=== PATIENT | male | born 1960 | race Caucasian/White ===

== ENCOUNTER 2021-11-01 20:16 | Emergency (ER) | payer OTHER ==
[~2021-11-01] VITALS: Ht 182.9 cm; Wt 68.2 kg
[2021-11-01 20:24] VITALS: BP 152/78
== END 2021-11-01 21:50 | disposition home or self-care (01) ==
LOC: ER 20:16
DX: V98.8XXA Other specified transport accidents, initial encounter; Y93.89 Activity, other specified; Y92.89 Other specified places as the place of occurrence of the external cause; Y99.8 Other external cause status
CPT/HCPCS: 99283

== ENCOUNTER 2023-05-02 06:53 | Emergency (ER) | payer OTHER ==
[~2023-05-02] VITALS: Ht 182.9 cm; Wt 64.8 kg
[2023-05-02 08:26] VITALS: PULSE 91; RESP 16; TEMP 97.7
[2023-05-02] MEDS: vancomycin/NS 1 GM ADD-VANTAGE 250 ML IV ONE (08:40)
[2023-05-02 09:19] LABS: BASOPHILS # (AUTO) 0.2 X10'3 (0-0.2); BASOPHILS % (AUTO) 1.2 % (0-1); EOSINOPHILS # (AUTO) 0.8 X10'3 (0-0.9); EOSINOPHILS % (AUTO) 6.2 % (0-6); HEMATOCRIT 44.1 % (42.0-52.0); HEMOGLOBIN 14.5 g/dl (14.0-17.9); LYMPHOCYTES # (AUTO) 2.3 X10'3 (1.1-4.8); LYMPHOCYTES % (AUTO) 17.5 % (21-51); MEAN CORPUSCULAR HEMOGLOBIN 28.7 PG (27.0-31.0); MEAN CORPUSCULAR HGB CONC 32.9 g/dL (33.0-36.5); MEAN CORPUSCULAR VOLUME 87.2 FL (78-98); MEAN PLATELET VOLUME 8.3 FL (7.4-10.4); MONOCYTES # (AUTO) 0.8 X10'3 (0-0.9); MONOCYTES % (AUTO) 6.3 % (2-12); NEUTROPHILS # (AUTO) 8.9 X10'3 (1.8-7.7); NEUTROPHILS % (AUTO) 68.8 % (42-75); PLATELET COUNT 519 X10'3 (140-440); RED BLOOD COUNT 5.05 X10'6 (4.70-6.10); RED CELL DISTRIBUTION WIDTH 13.4 % (11.5-14.5)
[2023-05-02] MEDS: cefepime 2g/NS 100ml ADVANTAGE 100 ML IV ONE (09:37)
[2023-05-02 09:52] LABS: ALBUMIN 3.8 G/DL (3.4-5.0); ANION GAP 13 (8-16); BLOOD UREA NITROGEN 18 MG/DL (7-18); BUN/CREATININE RATIO 23.4 (10.0-20.0); CHLORIDE 99 MMOL/L (99-107); CREATININE 0.77 MG/DL (0.60-1.10); GLUCOSE 331 MG/DL (70-104); POTASSIUM 4.1 MMOL/L (3.5-5.1); SODIUM 136 MMOL/L (135-145); TOTAL CARBON DIOXIDE 24.5 MMOL/L (24-32); eCRCL 89 ML/MIN; eGFR > 90 ML/MIN
[2023-05-02] MEDS ORDERED: CLIN300C3 PO (11:04)
[2023-05-02] MEDS ORDERED: SULF1TAB49 PO (11:04)
[2023-05-02] MEDS: insulin regular, human 10 units/0.1 ml syringe SQ SCH (12:52)
[2023-05-02 13:14] VITALS: BP 136/72; O2SAT 96
== END 2023-05-02 13:30 | disposition home or self-care (01) ==
LOC: ER 06:53
DX: L03.115 Cellulitis of right lower limb (principal); L03.116 Cellulitis of left lower limb; E11.65 Type 2 diabetes mellitus with hyperglycemia; Z88.0 Allergy status to penicillin
CPT/HCPCS: 36415; 80048; 82948; 85025; 96365; 96366; 96368; 96372; 99284; J0692; J1815; J3370

== ENCOUNTER 2023-08-31 17:19 | Inpatient (IN) | payer MEDICARE, OTHER ==
[~2023-08-31] VITALS: Ht 185.4 cm; Wt 62.0 kg
[2023-08-31 17:55] LABS: BASOPHILS % (AUTO) 0.2 % (0-1); EOSINOPHILS % (AUTO) 0.1 % (0-6); HEMATOCRIT 47.6 % (42.0-52.0); HEMOGLOBIN 15.6 g/dl (14.0-17.9); LYMPHOCYTES # (AUTO) 0.6 X10'3 (1.1-4.8); LYMPHOCYTES % (AUTO) 4.6 % (21-51); MEAN CORPUSCULAR HEMOGLOBIN 28.3 PG (27.0-31.0); MEAN CORPUSCULAR HGB CONC 32.8 g/dL (33.0-36.5); MEAN CORPUSCULAR VOLUME 86.1 FL (78-98); MEAN PLATELET VOLUME 8.6 FL (7.4-10.4); MONOCYTES # (AUTO) 0.9 X10'3 (0-0.9); MONOCYTES % (AUTO) 6.4 % (2-12); NEUTROPHILS # (AUTO) 12.2 X10'3 (1.8-7.7); NEUTROPHILS % (AUTO) 88.7 % (42-75); PLATELET COUNT 442 X10'3 (140-440); RED BLOOD COUNT 5.52 X10'6 (4.70-6.10); RED CELL DISTRIBUTION WIDTH 14.8 % (11.5-14.5); WHITE BLOOD COUNT 13.8 X10'3 (4.5-11.0)
[2023-08-31 18:03] LABS: ABG BASE EXCESS -8.8 mmol/L (-2.0-2.0); ABG HCO3 14.7 mmol/L (22.0-26.0); ABG OXYGEN SATURATION 88.2 % (94-97); ABG PCO2 (T) 26.9 mmHg (35.0-48.0); ABG PH (T) 7.355 (7.340-7.440); ABG PO2 (T) 52.3 mmHg (75.0-100.0); ALLEN'S TEST POSITIVE; FCOHb 0.3 % (0.0-3.9); FHHb 11.7 % (0.0-5.0); FLOW 15 L/min; FMetHb 0.3 % (0.0-1.5); FO2Hb 87.7 % (94-97); MODE NRB MASK; PATIENT TEMPERATURE 37.1; TOTAL HEMOGLOBIN 16.7 G/dl (14.0-17.9)
[2023-08-31] MEDS: normal saline 1000ML IV soln IV ONE (18:07)
[2023-08-31] MEDS: vancomycin/NS 1 GM ADD-VANTAGE 250 ML IV ONE (18:11)
[2023-08-31] MEDS: cefoxitin sod inj 2,000 MG in normal saline 100ml IV soln 100 ML IV STA (18:16)
[2023-08-31 18:23] LABS: ALANINE AMINOTRANSFERASE 74 U/L (12-78); ALBUMIN 3.3 G/DL (3.4-5.0); ALKALINE PHOSPHATASE 108 IU/L (46-116); ANION GAP 14 (8-16); ASPARTATE AMINO TRANSFERASE 34 U/L (10-37); BILIRUBIN,TOTAL 0.7 MG/DL (0.1-1.0); BLOOD UREA NITROGEN 27 MG/DL (7-18); CALCIUM 8.5 MG/DL (8.5-10.1); CHLORIDE 103 MMOL/L (99-107); CREATININE 0.75 MG/DL (0.60-1.10); GLUCOSE 316 MG/DL (70-104); MAGNESIUM 1.6 MG/DL (1.5-2.4); POTASSIUM 3.7 MMOL/L (3.5-5.1); PRO BRAIN NATRIURETIC PEPTIDE 297 PG/ML (0-125); SODIUM 137 MMOL/L (135-145); TOTAL CARBON DIOXIDE 19.8 MMOL/L (24-32); TOTAL PROTEIN 6.5 G/DL (6.4-8.2); eCRCL 88 ML/MIN; eGFR > 90 ML/MIN
[2023-08-31] MEDS ORDERED: iohexol 350MG/ML 100ml bottle IV ONE (19:00)
[2023-08-31] MEDS ORDERED: CLINDAMYCIN 600mg IN NS 50ML 50 ML IV ONE (19:25)
[2023-08-31 19:56] LABS: ETHANOL < 10 MG/DL (<10)
[2023-08-31] MEDS: naloxone 0.4 mg/ml inj IV ONE ×2 (20:19→20:31)
[2023-08-31] MEDS: clindamycin 600mg/D5W 50ml 50 ML IV ONE (20:22)
[2023-08-31 21:41] LABS: BILIRUBIN,URINE NEGATIVE (Neg); CLARITY,URINE CLEAR (Clear); COLOR,URINE YELLOW (Yellow); GLUCOSE, URINE >=1000 mg/dl (Neg); KETONES,URINE 40 mg/dl (Neg); LEUKOCYTE ESTERASE ,URINE NEGATIVE (Neg); NITRITES, URINE NEGATIVE (Neg); OCCULT BLOOD,URINE NEGATIVE (Neg); PROTEIN,URINE NEGATIVE (Neg); UROBILINOGEN,URINE 0.2 E.U/dL (0.2-1.0)
[2023-08-31 21:45] LABS: UA COLLECTION TYPE STRAIGHT CATH
[2023-08-31 21:53] LABS: BACTERIA,URINE 1+ /HPF (Neg); SQUAMOUS EPITHELIAL CELL,UR MODERATE /LPF (FEW)
[2023-08-31 21:54] LABS: MUCUS STRANDS FEW /LPF (Neg); RENAL CELLS, URINE FEW /HPF
[2023-08-31 21:58] LABS: URINE AMPHETAMINE SCREEN NEGATIVE (Neg); URINE BARBITUATE SCREEN NEGATIVE (Neg); URINE BENZODIAZEPINES SCREEN NEGATIVE (Neg); URINE CANNABINOID SCREEN NEGATIVE (Neg); URINE COCAINE SCREEN NEGATIVE (Neg); URINE METHADONE SCREEN NEGATIVE (Neg); URINE OPIATE SCREEN NEGATIVE (Neg); URINE PHENCYCLIDINE SCREEN NEGATIVE (Neg)
[2023-08-31] MEDS ORDERED: ondansetron/PF 4mg/2ml inj IV PRN (22:00)
[2023-08-31] MEDS ORDERED: magnesium Cl slow-release 64mg tablet PO PRN (22:00)
[2023-08-31] MEDS ORDERED: acetaminophen 325mg tablet PO PRN (22:00)
[2023-08-31] MEDS ORDERED: mag hydrox/Alum hydrox/simeth 30ml oral suspension PO PRN (22:00)
[2023-08-31] MEDS ORDERED: magnesium sulf-water 4G/100mL 100 ML IV PRN (22:00)
[2023-08-31] MEDS ORDERED: magnesium sulf-water 2g/50mL 50 ML IV PRN (22:00)
[2023-08-31] MEDS ORDERED: morphine 2 MG/ML inj. syringe IV PRN ×2 (22:00)
[2023-08-31] MEDS ORDERED: magnesium hydroxide 30ml (MOM) UD suspension PO PRN (22:00)
[2023-08-31] MEDS ORDERED: potassium Cl 40MEQ/1/2NS 520ml 520 ML IV PRN (22:00)
[2023-08-31] MEDS ORDERED: potassium Cl 20 mEq SR tablet PO PRN (22:00)
[2023-08-31] MEDS ORDERED: dextrose 50%-water 50ml dispensing syringe IV PRN ×2 (22:25)
[2023-08-31] MEDS ORDERED: glucagon, human recombinant 1mg kit SUBCUT PRN (22:25)
[2023-08-31] MEDS ORDERED: DEXTROSE 15 GM of carb/4 tabs (each vial/BOTTLE has 4 tablets) PO PRN ×2 (22:25)
[2023-08-31] MEDS ORDERED: LORazepam 2 mg/ml vial IV PRN (22:55)
[2023-08-31] MEDS ORDERED: haloperidol lactate 5mg/ml inj IM PRN (22:55)
[2023-08-31 23:42] LABS: ALANINE AMINOTRANSFERASE 70 U/L (12-78); ALBUMIN 3.1 G/DL (3.4-5.0); ALBUMIN/GLOBULIN RATIO 0.9 (1.1-1.5); ALKALINE PHOSPHATASE 97 IU/L (46-116); ANION GAP 15 (8-16); BILIRUBIN,TOTAL 0.7 MG/DL (0.1-1.0); BLOOD UREA NITROGEN 22 MG/DL (7-18); BUN/CREATININE RATIO 24.7 (10.0-20.0); CALCIUM 8.5 MG/DL (8.5-10.1); CHLORIDE 103 MMOL/L (99-107); CREATININE 0.89 MG/DL (0.60-1.10); GLUCOSE 291 MG/DL (70-104); SODIUM 139 MMOL/L (135-145); TOTAL CARBON DIOXIDE 20.6 MMOL/L (24-32); TOTAL PROTEIN 6.5 G/DL (6.4-8.2); eCRCL 74 ML/MIN; eGFR 86 ML/MIN
[2023-08-31 23:54] LABS: POTASSIUM 4.1 MMOL/L (3.5-5.1)
[2023-08-31 23:55] LABS: ASPARTATE AMINO TRANSFERASE 47 U/L (10-37)
[2023-09-01] MEDS: thiamine 100mg/ml 2ml inj. IM SCH (00:40)
[2023-09-01] MEDS: cefoxitin sod inj 2,000 MG in normal saline 100ml IV soln 100 ML IV SCH (00:42)
[2023-09-01] MEDS: ringers solution, lacted 1,000 ML IV SCH (00:42)
[2023-09-01 01:54] LABS: BASOPHILS % (AUTO) 0.2 % (0-1); EOSINOPHILS % (AUTO) 0 % (0-6); HEMATOCRIT 46.4 % (42.0-52.0); LYMPHOCYTES # (AUTO) 0.9 X10'3 (1.1-4.8); LYMPHOCYTES % (AUTO) 5.1 % (21-51); MEAN CORPUSCULAR HEMOGLOBIN 28.1 PG (27.0-31.0); MEAN CORPUSCULAR HGB CONC 32.4 g/dL (33.0-36.5); MEAN CORPUSCULAR VOLUME 86.8 FL (78-98); MEAN PLATELET VOLUME 8.7 FL (7.4-10.4); MONOCYTES # (AUTO) 0.9 X10'3 (0-0.9); MONOCYTES % (AUTO) 5.2 % (2-12); NEUTROPHILS # (AUTO) 16.2 X10'3 (1.8-7.7); NEUTROPHILS % (AUTO) 89.5 % (42-75); PLATELET COUNT 398 X10'3 (140-440); RED BLOOD COUNT 5.34 X10'6 (4.70-6.10); RED CELL DISTRIBUTION WIDTH 14.8 % (11.5-14.5); WHITE BLOOD COUNT 18.1 X10'3 (4.5-11.0)
[2023-09-01 02:09] LABS: ALANINE AMINOTRANSFERASE 63 U/L (12-78); ALBUMIN/GLOBULIN RATIO 0.9 (1.1-1.5); ALKALINE PHOSPHATASE 94 IU/L (46-116); ASPARTATE AMINO TRANSFERASE 45 U/L (10-37); BILIRUBIN,TOTAL 0.6 MG/DL (0.1-1.0); BLOOD UREA NITROGEN 22 MG/DL (7-18); BUN/CREATININE RATIO 15.6 (10.0-20.0); CALCIUM 8.7 MG/DL (8.5-10.1); CHLORIDE 104 MMOL/L (99-107); CREATININE 1.41 MG/DL (0.60-1.10); GLUCOSE 297 MG/DL (70-104); TOTAL CARBON DIOXIDE 20.8 MMOL/L (24-32); TOTAL PROTEIN 6.4 G/DL (6.4-8.2); eCRCL 47 ML/MIN; eGFR 50 ML/MIN
[2023-09-01 02:14] LABS: HEMOGLOBIN A1C 11.3 % (4.5-6.2)
[2023-09-01 02:19] LABS: CHOL/HDL RATIO 2.7 (0.00-4.99); CHOLESTEROL 151 MG/DL (0-200); HDL CHOLESTEROL 56 MG/DL (35-60); LDL CHOLESTEROL 76 MG/DL (50-100); MAGNESIUM 1.6 MG/DL (1.5-2.4); TRIGLYCERIDES 58 MG/DL (20-135)
[2023-09-01 02:34] LABS: POTASSIUM 3.6 MMOL/L (3.5-5.1)
[2023-09-01] MEDS: aspirin 81mg, enteric-coated 1 TAB TABLET.DR PO SCH (02:41)
[2023-09-01 02:49] LABS: THYROID STIMULATING HORMONE 1.25 ulU/ml (0.34-4.50)
[2023-09-01 03:41] LABS: SODIUM 140 MMOL/L (135-145)
[2023-09-01 03:43] LABS: ANION GAP 15 (8-16)
[2023-09-01] MEDS: vancomycin/NS 1 GM ADD-VANTAGE 250 ML IV SCH (06:19)
[2023-09-01] MEDS: K and/or MAG REPLACEMENT MC SCH (08:00)
[2023-09-01] MEDS: atorvastatin 20mg tablet PO SCH (08:32)
[2023-09-01] MEDS: docusate sod 100mg capsule PO SCH (08:32)
[2023-09-01] MEDS: enoxaparin 40mg/0.4ml syringe SUBCUT SCH (08:33)
[2023-09-01] MEDS: MULTIVIT-MIN/FERROUS GLUCONATE 9 MG/15 ML LIQUID PO SCH (08:35)
[2023-09-01] MEDS: insulin Lispro (HumaLOG) vial - multi-dose SQ SCH (09:11)
[2023-09-01] MEDS: metroNIDAZOLE-Flagyl 500mg/NS 100 ML IV SCH (09:16)
[2023-09-01] MEDS ORDERED: NO HOME MEDS (09:50)
[2023-09-01 10:20] VITALS: BP 169/80; PULSE 73; RESP 16; TEMP 98.8; O2SAT 94
[2023-09-01] MEDS ORDERED: LORazepam 1 MG tablet PO PRN (11:25)
[2023-09-01] MEDS ORDERED: morphine 2 MG/ML inj. syringe IV PRN (11:25)
[2023-09-01] MEDS ORDERED: LORazepam 2 mg/ml vial IV PRN (11:25)
[2023-09-01] MEDS: MESSAGE TO NURSING IV ONE ×3 (11:45→20:55)
[2023-09-01 12:37] LABS: BASOPHILS % (AUTO) 0.1 % (0-1); EOSINOPHILS % (AUTO) 0 % (0-6); HEMOGLOBIN 13.9 g/dl (14.0-17.9); LYMPHOCYTES # (AUTO) 2.1 X10'3 (1.1-4.8); LYMPHOCYTES % (AUTO) 8.6 % (21-51); MEAN CORPUSCULAR HGB CONC 32.3 g/dL (33.0-36.5); MEAN CORPUSCULAR VOLUME 86.9 FL (78-98); MEAN PLATELET VOLUME 9.5 FL (7.4-10.4); MONOCYTES # (AUTO) 1.8 X10'3 (0-0.9); MONOCYTES % (AUTO) 7.4 % (2-12); NEUTROPHILS # (AUTO) 20.4 X10'3 (1.8-7.7); NEUTROPHILS % (AUTO) 83.9 % (42-75); PLATELET COUNT 378 X10'3 (140-440); RED BLOOD COUNT 4.94 X10'6 (4.70-6.10); RED CELL DISTRIBUTION WIDTH 14.8 % (11.5-14.5); WHITE BLOOD COUNT 24.4 X10'3 (4.5-11.0)
[2023-09-01 12:46] LABS: APTT 36 SECONDS (22-32); INR 1.4 INR; PROTHROMBIN TIME 14.1 SECONDS (9.0-12.0)
[2023-09-01 13:00] LABS: PLATELET ESTIMATE NORMAL; TOTAL CELLS COUNTED 100
[2023-09-01] MEDS: heparin 10,000 units/1 ML INJ IV ONE (14:09)
[2023-09-01] MEDS: heparin 25,000 UNIT/250ml bag 250 ML IV PRN (14:12)
[2023-09-01 18:00] VITALS: BP 168/78; PULSE 71; RESP 17; TEMP 98.1; O2SAT 96
[2023-09-01] MEDS: insulin glargine (Lantus) pen - multi-dose SQ SCH (20:39)
[2023-09-01 22:00] VITALS: BP 144/74; PULSE 78; RESP 16; TEMP 98.4; O2SAT 96
[2023-09-02 02:42] LABS: BASOPHILS # (AUTO) 0.2 X10'3 (0-0.2); EOSINOPHILS # (AUTO) 0.3 X10'3 (0-0.9); EOSINOPHILS % (AUTO) 1.4 % (0-6); HEMATOCRIT 35.9 % (42.0-52.0); HEMOGLOBIN 11.8 g/dl (14.0-17.9); LYMPHOCYTES # (AUTO) 2.1 X10'3 (1.1-4.8); LYMPHOCYTES % (AUTO) 10.9 % (21-51); MEAN CORPUSCULAR HEMOGLOBIN 27.8 PG (27.0-31.0); MEAN CORPUSCULAR HGB CONC 32.8 g/dL (33.0-36.5); MEAN CORPUSCULAR VOLUME 84.9 FL (78-98); MEAN PLATELET VOLUME 8.5 FL (7.4-10.4); MONOCYTES # (AUTO) 0.9 X10'3 (0-0.9); MONOCYTES % (AUTO) 4.9 % (2-12); NEUTROPHILS # (AUTO) 15.8 X10'3 (1.8-7.7); NEUTROPHILS % (AUTO) 81.8 % (42-75); PLATELET COUNT 314 X10'3 (140-440); RED BLOOD COUNT 4.22 X10'6 (4.70-6.10); RED CELL DISTRIBUTION WIDTH 14.5 % (11.5-14.5); WHITE BLOOD COUNT 19.3 X10'3 (4.5-11.0)
[2023-09-02 02:55] LABS: ALANINE AMINOTRANSFERASE 68 U/L (12-78); ALBUMIN 2.3 G/DL (3.4-5.0); ALBUMIN/GLOBULIN RATIO 0.8 (1.1-1.5); ALKALINE PHOSPHATASE 96 IU/L (46-116); ANION GAP 7 (8-16); ASPARTATE AMINO TRANSFERASE 56 U/L (10-37); BILIRUBIN,TOTAL 0.4 MG/DL (0.1-1.0); BLOOD UREA NITROGEN 25 MG/DL (7-18); BUN/CREATININE RATIO 36.8 (10.0-20.0); CALCIUM 8.5 MG/DL (8.5-10.1); CHLORIDE 104 MMOL/L (99-107); CREATININE 0.68 MG/DL (0.60-1.10); GLUCOSE 182 MG/DL (70-104); MAGNESIUM 1.7 MG/DL (1.5-2.4); POTASSIUM 3.1 MMOL/L (3.5-5.1); SODIUM 137 MMOL/L (135-145); TOTAL PROTEIN 5.3 G/DL (6.4-8.2); eCRCL 95 ML/MIN; eGFR > 90 ML/MIN
[2023-09-02 04:07] LABS: TOTAL CELLS COUNTED 100
[2023-09-02 04:09] LABS: ANISOCYTOSIS 1+; BURR CELLS 1+; PLATELET ESTIMATE NORMAL
[2023-09-02] MEDS: MESSAGE TO NURSING IV ONE ×2 (04:09→22:40)
[2023-09-02 04:10] LABS: SCHISTOCYTES FEW
[2023-09-02] MEDS: vancomycin/NS 1 GM ADD-VANTAGE 250 ML IV SCH (05:25)
[2023-09-02 06:00] VITALS: BP 149/69; PULSE 68; RESP 16; TEMP 97.9; O2SAT 96
[2023-09-02] MEDS: potassium Cl 20 mEq SR tablet PO PRN (08:03)
[2023-09-02] MEDS: heparin 10,000 units/1 ML INJ IV PRN (09:22)
[2023-09-02 10:00] VITALS: BP 160/71; PULSE 66; RESP 14; TEMP 97.6; O2SAT 94
[2023-09-02] MEDS: MESSAGE TO NURSING PO NR ×2 (10:59→15:01)
[2023-09-02 18:00] VITALS: BP 157/73; PULSE 66; RESP 19; TEMP 97.6; O2SAT 92
[2023-09-02] MEDS: lactose-reduced food (Ensure Enlive) - 237ml bottle PO SCH (18:06)
[2023-09-02] MEDS ORDERED: iohexol 300mg/ml 100ml inj. ONE (19:45)
[2023-09-02] MEDS: haloperidol 5mg tablet PO PRN (21:52)
[2023-09-02] MEDS: LORazepam 1 MG tablet PO PRN (21:52)
[2023-09-02] MEDS: thiamine 100mg tablet PO SCH (21:53)
[2023-09-02] MEDS: metoprolol succinate 25mg (24-HOUR) SR. Tablet PO SCH (21:53)
[2023-09-02] MEDS ORDERED: LORazepam 2 mg/ml vial IV PRN (22:55)
[2023-09-03] VITALS (12 sets, daily range): BP systolic 105–154; BP diastolic 51–77; PULSE 57–81; RESP 14–22; TEMP 96.6–97.3; O2SAT 93–98
[2023-09-03 02:56] LABS: BASOPHILS # (AUTO) 0.1 X10'3 (0-0.2); BASOPHILS % (AUTO) 0.7 % (0-1); EOSINOPHILS # (AUTO) 0.5 X10'3 (0-0.9); EOSINOPHILS % (AUTO) 2.7 % (0-6); HEMATOCRIT 38.1 % (42.0-52.0); HEMOGLOBIN 12.6 g/dl (14.0-17.9); LYMPHOCYTES # (AUTO) 1.9 X10'3 (1.1-4.8); LYMPHOCYTES % (AUTO) 9.9 % (21-51); MEAN CORPUSCULAR HEMOGLOBIN 28.2 PG (27.0-31.0); MEAN CORPUSCULAR VOLUME 85.4 FL (78-98); MEAN PLATELET VOLUME 8.7 FL (7.4-10.4); MONOCYTES # (AUTO) 0.9 X10'3 (0-0.9); MONOCYTES % (AUTO) 4.9 % (2-12); NEUTROPHILS # (AUTO) 15.7 X10'3 (1.8-7.7); NEUTROPHILS % (AUTO) 81.8 % (42-75); PLATELET COUNT 325 X10'3 (140-440); RED BLOOD COUNT 4.46 X10'6 (4.70-6.10); RED CELL DISTRIBUTION WIDTH 14.9 % (11.5-14.5); WHITE BLOOD COUNT 19.2 X10'3 (4.5-11.0)
[2023-09-03 03:09] LABS: ALANINE AMINOTRANSFERASE 52 U/L (12-78); ALBUMIN 2.2 G/DL (3.4-5.0); ALBUMIN/GLOBULIN RATIO 0.7 (1.1-1.5); ALKALINE PHOSPHATASE 99 IU/L (46-116); ANION GAP 4 (8-16); ASPARTATE AMINO TRANSFERASE 26 U/L (10-37); BILIRUBIN,TOTAL 0.5 MG/DL (0.1-1.0); BLOOD UREA NITROGEN 11 MG/DL (7-18); CALCIUM 8.4 MG/DL (8.5-10.1); CHLORIDE 103 MMOL/L (99-107); GLUCOSE 116 MG/DL (70-104); MAGNESIUM 1.6 MG/DL (1.5-2.4); POTASSIUM 3.2 MMOL/L (3.5-5.1); SODIUM 136 MMOL/L (135-145); TOTAL CARBON DIOXIDE 28.8 MMOL/L (24-32); TOTAL PROTEIN 5.5 G/DL (6.4-8.2); eCRCL 129 ML/MIN; eGFR > 90 ML/MIN
[2023-09-03 03:25] LABS: BURR CELLS 1+; ELLIPTOCYTES FEW; PLATELET ESTIMATE NORMAL; SCHISTOCYTES FEW; TOTAL CELLS COUNTED 100; TOXIC VACUOLATION FEW
[2023-09-03] MEDS: MESSAGE TO NURSING IV ONE ×2 (03:59→09:50)
[2023-09-03] MEDS ORDERED: aminophylline 250mg/10ml inj. IV PRN (07:20)
[2023-09-03] MEDS: losartan 25mg tablet PO SCH (08:00)
[2023-09-03] MEDS ORDERED: thiamine 100mg/ml 2ml inj. IM SCH (08:00)
[2023-09-03] MEDS: levoFLOXACIN-Levaquin 500mg/D5 100 ML IV SCH (08:45)
[2023-09-03] MEDS: lisinopril 10 MG tablet PO SCH (08:55)
[2023-09-03] MEDS: regadenoson 0.4mg/5ml syringe IV PRN (09:48)
[2023-09-03] MEDS: heparin, porcine 5000 units/ml vial SQ SCH (20:56)
[2023-09-04 04:54] LABS: BASOPHILS % (AUTO) 0.2 % (0-1); EOSINOPHILS # (AUTO) 0.4 X10'3 (0-0.9); HEMATOCRIT 38.9 % (42.0-52.0); HEMOGLOBIN 12.6 g/dl (14.0-17.9); LYMPHOCYTES % (AUTO) 11.3 % (21-51); MEAN CORPUSCULAR HEMOGLOBIN 27.9 PG (27.0-31.0); MEAN CORPUSCULAR HGB CONC 32.5 g/dL (33.0-36.5); MEAN CORPUSCULAR VOLUME 85.9 FL (78-98); MEAN PLATELET VOLUME 9.3 FL (7.4-10.4); MONOCYTES # (AUTO) 1.2 X10'3 (0-0.9); MONOCYTES % (AUTO) 6.9 % (2-12); NEUTROPHILS # (AUTO) 13.9 X10'3 (1.8-7.7); NEUTROPHILS % (AUTO) 79.6 % (42-75); PLATELET COUNT 346 X10'3 (140-440); RED BLOOD COUNT 4.53 X10'6 (4.70-6.10); RED CELL DISTRIBUTION WIDTH 14.8 % (11.5-14.5); WHITE BLOOD COUNT 17.5 X10'3 (4.5-11.0)
[2023-09-04 05:14] LABS: ALANINE AMINOTRANSFERASE 50 U/L (12-78); ALBUMIN 2.3 G/DL (3.4-5.0); ALBUMIN/GLOBULIN RATIO 0.7 (1.1-1.5); ALKALINE PHOSPHATASE 121 IU/L (46-116); ANION GAP 7 (8-16); ASPARTATE AMINO TRANSFERASE 34 U/L (10-37); BILIRUBIN,TOTAL 0.4 MG/DL (0.1-1.0); BLOOD UREA NITROGEN 12 MG/DL (7-18); BUN/CREATININE RATIO 24.5 (10.0-20.0); CALCIUM 8.5 MG/DL (8.5-10.1); CHLORIDE 102 MMOL/L (99-107); CREATININE 0.49 MG/DL (0.60-1.10); GLUCOSE 124 MG/DL (70-104); MAGNESIUM 1.7 MG/DL (1.5-2.4); POTASSIUM 3.5 MMOL/L (3.5-5.1); SODIUM 135 MMOL/L (135-145); TOTAL CARBON DIOXIDE 26.1 MMOL/L (24-32); TOTAL PROTEIN 5.8 G/DL (6.4-8.2); VANCOMYCIN,TROUGH 2.9 ug/mL (10.0-20.0); eCRCL 132 ML/MIN; eGFR > 90 ML/MIN
[2023-09-04] MEDS ORDERED: vancomycin/NS 1 GM ADD-VANTAGE 250 ML IV SCH (05:20)
[2023-09-04] MEDS: VANCOMYCIN LEVEL IV ONE (05:23)
[2023-09-04] MEDS: vancomycin/NS 1 GM ADD-VANTAGE 250 ML IV SCH (05:31)
[2023-09-04 06:00] VITALS: BP 160/75; PULSE 59; RESP 15; TEMP 98.2; O2SAT 96
[2023-09-04 10:00] VITALS: BP 138/68; PULSE 78; RESP 15; TEMP 98.7; O2SAT 84
[2023-09-04 10:08] VITALS: BP_SYST 160; PULSE 59
[2023-09-04] MEDS ORDERED: LORazepam 1 MG tablet PO PRN (22:55)
[2023-09-04] MEDS ORDERED: LORazepam 2 mg/ml vial IV PRN (22:55)
[2023-09-05] MEDS ORDERED: VANCOMYCIN LEVEL IV ONE (16:30)
== END 2023-09-04 16:30 | DRG 871 ==
LOC: ER 17:20 → ED HOLD 22:15 → ORTHO 4S 09-01 10:36
PROVIDERS: ADMIT Internal Medicine Critical Care Medicine; ATTEND Internal Medicine
PROC: B3251ZZ Computerized Tomography (CT Scan) of Bilateral Common Carotid Arteries using Low Osmolar Contrast (ICD-10-PCS; principal; 2023-08-31)
PROC: B32G1ZZ Computerized Tomography (CT Scan) of Bilateral Vertebral Arteries using Low Osmolar Contrast (ICD-10-PCS; 2023-08-31)
PROC: B32R1ZZ Computerized Tomography (CT Scan) of Intracranial Arteries using Low Osmolar Contrast (ICD-10-PCS; 2023-08-31)
PROC: B3281ZZ Computerized Tomography (CT Scan) of Bilateral Internal Carotid Arteries using Low Osmolar Contrast (ICD-10-PCS; 2023-08-31)
PROC: 4A02XM4 Measurement of Cardiac Total Activity, External Approach (ICD-10-PCS; 2023-09-03)
PROC: 3E033HZ Introduction of Radioactive Substance into Peripheral Vein, Percutaneous Approach (ICD-10-PCS; 2023-09-03)
DX: A41.9 Sepsis, unspecified organism (principal); G93.41 Metabolic encephalopathy; J18.9 Pneumonia, unspecified organism; J96.01 Acute respiratory failure with hypoxia; I21.A1 Myocardial infarction type 2; F10.239 Alcohol dependence with withdrawal, unspecified; I10 Essential (primary) hypertension; E78.5 Hyperlipidemia, unspecified; R94.4 Abnormal results of kidney function studies; E11.65 Type 2 diabetes mellitus with hyperglycemia; Z88.0 Allergy status to penicillin; Z86.73 Personal history of transient ischemic attack (TIA), and cerebral infarction without residual deficits; Z92.21 Personal history of antineoplastic chemotherapy; Z85.71 Personal history of Hodgkin lymphoma; Z91.199 Patient's noncompliance with other medical treatment and regimen due to unspecified reason
CPT/HCPCS: 36415; 36600; 70450; 70470; 70496; 70498; 71045; 78452; 80053; 80061; 80202; 80305; 80320; 81001; 82140; 82803; 82948; 83036; 83605; 83735; 83880; 84145; 84443; 84484; 85007; 85018; 85025; 85610; 85651; 85730; 87040; 87081; 87088; 93005; 93017; 93306; 96365; 96367; 96375; 97110; 97161; 97530; 99285; A4615; A4620; A6212; A6590; A9500; C1758; G0378; J0694; J1644; J1650; J1815; J1956; J2310; J2785; J3370; J3411; J3490; J7030; J7120; Q9967